=== PATIENT | female | born 1995 | race Caucasian/White ===

== ENCOUNTER → 2017-01-22 | Outpatient (CLI) | payer OTHER | LOC: BHSO 10:04 | DX: F42.9 Obsessive-compulsive disorder, unspecified (principal) | CPT/HCPCS: 90791-AI ==

== ENCOUNTER → 2017-03-25 | Outpatient (CLI) | payer OTHER | LOC: BHSO 10:28 | DX: F42.9 Obsessive-compulsive disorder, unspecified (principal) ==